=== PATIENT | male | born 1985 ===

== ENCOUNTER 2022-06-29 06:50 | Day surgery (SDC) | payer OTHER | END 2022-06-29 10:45 | disposition home or self-care (01) | LOC: AMB-ENDOS 06:50 | PROVIDERS: ATTEND Surgery | DX: D12.5 Benign neoplasm of sigmoid colon (principal); K62.5 Hemorrhage of anus and rectum; Z20.822 Contact with and (suspected) exposure to COVID-19; Z88.6 Allergy status to analgesic agent ==